=== PATIENT | male | born 1960 | race Caucasian/White ===

== ENCOUNTER 2019-03-11 14:34 | Outpatient (CLI) | payer OTHER | END 2019-03-11 23:59 | disposition home or self-care (01) | LOC: CARD 14:34 | PROVIDERS: ATTEND Internal Medicine Cardiovascular Disease | DX: I73.9 Peripheral vascular disease, unspecified (principal) ==

== ENCOUNTER 2024-05-31 06:28 | Inpatient (IN) | payer MEDICARE ==
[~2024-05-31] VITALS: Ht 170.2 cm; Wt 78.5 kg
[2024-05-31 02:00] VITALS: BP 132/80; TEMP 97.5; O2SAT 92
[2024-05-31] MEDS ORDERED: VANCOMYCIN 1 GM VIAL ONE (07:13)
[2024-05-31] MEDS ORDERED: dexaMETHasone SOD PHOSPHATE 2 ML ONE (07:13)
[2024-05-31] MEDS ORDERED: LIDOCAINE 2%-EPI 1:100,000 30 ML VIAL ONE (07:13)
[2024-05-31] MEDS ORDERED: FENTANYL PF 250MCG/5ML AMPUL ONE (07:18)
[2024-05-31] MEDS ORDERED: ROCURONIUM BROMIDE 50 MG/5 ML ONE (07:19)
[2024-05-31 11:00] VITALS: BP 132/80; TEMP 97.5; O2SAT 92
[2024-05-31 11:30] VITALS: BP 120/80; TEMP 97.8; O2SAT 92
[2024-05-31] MEDS ORDERED: ONDANSETRON HCL/PF 4 MG/2 ML VIAL IVP PRN (11:30)
[2024-05-31] MEDS ORDERED: AMOX1TAB16 PO (11:44)
[2024-05-31] MEDS ORDERED: TAMS-12 PO (11:44)
[2024-05-31] MEDS ORDERED: TRAM50TA2 PO (11:44)
[2024-05-31] MEDS ORDERED: LEVO112T7 PO (11:44)
[2024-05-31] MEDS ORDERED: BUPR150T10 PO (11:44)
[2024-05-31] MEDS ORDERED: ATOR20TA PO (11:44)
[2024-05-31] MEDS: HYDROMORPHONE 1 MG/1 ML DISP.SYRIN IV PRN (13:19)
[2024-05-31] MEDS: IV NS 0.9% 1,000 ML IV PRN (14:07)
[2024-05-31 16:00] VITALS: BP 132/80; TEMP 97.5; O2SAT 92
[2024-05-31 20:00] VITALS: BP 127/75; TEMP 97.5; O2SAT 95
[2024-05-31] MEDS: VANCOMYCIN 1 GM in IV D5W 250ml IV SCH (20:58)
[2024-05-31] MEDS: ACETAMINOPHEN 325 MG TABLET PO PRN (21:06)
[2024-06-01 08:00] VITALS: BP 126/76; TEMP 98.8; O2SAT 93
== END 2024-06-01 10:56 | disposition home or self-care (01) | DRG 142 ==
LOC: DS 06:28 → MED 11:07
PROVIDERS: ADMIT Internal Medicine; ATTEND Internal Medicine
PROC: 0NST04Z Reposition Right Mandible with Internal Fixation Device, Open Approach (ICD-10-PCS; principal; 2024-05-31)
PROC: 0N5T0ZZ Destruction of Right Mandible, Open Approach (ICD-10-PCS; principal; 2024-05-31)
PROC: 0N5R0ZZ Destruction of Maxilla, Open Approach (ICD-10-PCS; principal; 2024-05-31)
PROC: 0NSV04Z Reposition Left Mandible with Internal Fixation Device, Open Approach (ICD-10-PCS; principal; 2024-05-31)
PROC: 0N5V0ZZ Destruction of Left Mandible, Open Approach (ICD-10-PCS; principal; 2024-05-31)
PROC: 0NUT07Z Supplement Right Mandible with Autologous Tissue Substitute, Open Approach (ICD-10-PCS; principal; 2024-05-31)
PROC: 0NSR04Z Reposition Maxilla with Internal Fixation Device, Open Approach (ICD-10-PCS; principal; 2024-05-31)
PROC: 0NUR07Z Supplement Maxilla with Autologous Tissue Substitute, Open Approach (ICD-10-PCS; principal; 2024-05-31)
DX: S02.40CA Maxillary fracture, right side, initial encounter for closed fracture (principal); S02.609A Fracture of mandible, unspecified, initial encounter for closed fracture; S02.40DA Maxillary fracture, left side, initial encounter for closed fracture; X58.XXXA Exposure to other specified factors, initial encounter; Y93.9 Activity, unspecified; Y92.89 Other specified places as the place of occurrence of the external cause; D16.4 Benign neoplasm of bones of skull and face; D16.5 Benign neoplasm of lower jaw bone; J32.0 Chronic maxillary sinusitis; M85.68 Other cyst of bone, other site; M27.2 Inflammatory conditions of jaws; E78.5 Hyperlipidemia, unspecified; L40.9 Psoriasis, unspecified; N40.0 Benign prostatic hyperplasia without lower urinary tract symptoms
CPT/HCPCS: 94799-TC; A4223; G0378; J0461; J0690; J1100; J1171; J2704; J3010; J3370; J3490; J7030; J7060

== ENCOUNTER 2024-09-27 06:02 | Day surgery (SDC) | payer OTHER ==
[~2024-09-27 06:02] MED LIST: AMOX1TAB16 PO; ATOR20TA PO; BUPR150T10 PO; LEVO112T7 PO; TAMS-12 PO; TRAM50TA2 PO
[2024-09-27] MEDS ORDERED: ROCURONIUM BROMIDE 50 MG/5 ML ONE (06:36)
[2024-09-27] MEDS ORDERED: FENTANYL PF 250MCG/5ML AMPUL ONE (06:36)
[2024-09-27] MEDS ORDERED: LIDOCAINE 2%-EPI 1:100,000 30 ML VIAL ONE (06:59)
[2024-09-27] MEDS ORDERED: dexaMETHasone SOD PHOSPHATE 1 ML ONE (06:59)
[2024-09-27] MEDS ORDERED: OXYMETAZOLINE HCL NASAL SPRAY 30 ML BOTTLE NS ONE (07:00)
[2024-09-27] MEDS ORDERED: VANCOMYCIN 1 GM VIAL ONE (07:00)
[2024-09-27] MEDS ORDERED: ALBUTEROL FS 2.5 MG/3 ML VIAL.NEB ONE (09:32)
[2024-09-27] MEDS ORDERED: IPRATROPIUM NEB FS 0.5 MG/2.5 ML AMPUL.NEB ONE (09:32)
[2024-09-27 09:40] VITALS: O2SAT 92
[2024-09-27] MEDS: ALBUTEROL FS 2.5 MG/3 ML VIAL.NEB NEB PRN (09:40)
[2024-09-27] MEDS: IPRATROPIUM NEB FS 0.5 MG/2.5 ML AMPUL.NEB NEB ONE (09:40)
[2024-09-27 09:51] VITALS: O2SAT 98
[2024-09-27] MEDS ORDERED: ACETAMINOPHEN 325 MG TABLET ONE (10:55)
[2024-09-27] MEDS: ACETAMINOPHEN 325 MG TABLET PO PRN (11:09)
[2024-09-27 11:20] VITALS: BP 126/76; TEMP 98.5; O2SAT 95
[2024-09-27] MEDS ORDERED: ONDANSETRON HCL/PF 4 MG/2 ML VIAL IV PRN (11:30)
[2024-09-27] MEDS ORDERED: IV NS 0.9% 1,000 ML IV PRN (11:30)
[2024-09-27] MEDS ORDERED: ACETAMINOPHEN 325 MG TABLET PO PRN (12:00)
[2024-09-27] MEDS ORDERED: HYDROMORPHONE 1 MG/1 ML DISP.SYRIN IV PRN (12:00)
[2024-09-27 12:07] VITALS: BP 120/76; TEMP 98.4; O2SAT 95
== END 2024-09-27 18:00 | disposition home or self-care (01) ==
LOC: DS 06:02 → UNDOADMIN 11:09 → MED 11:09 → UNDODISIN 16:05 → DS 18:00
PROVIDERS: ATTEND Dentist Oral and Maxillofacial Surgery
PROC: 0N5R0ZZ Destruction of Maxilla, Open Approach (ICD-10-PCS; principal; 2024-09-27)
PROC: 0NPW04Z Removal of Internal Fixation Device from Facial Bone, Open Approach (ICD-10-PCS; 2024-09-27)
PROC: 0N5V0ZZ Destruction of Left Mandible, Open Approach (ICD-10-PCS; 2024-09-27)
PROC: 0N5T0ZZ Destruction of Right Mandible, Open Approach (ICD-10-PCS; 2024-09-27)
PROC: 0NST04Z Reposition Right Mandible with Internal Fixation Device, Open Approach (ICD-10-PCS; 2024-09-27)
PROC: 0NPW07Z Removal of Autologous Tissue Substitute from Facial Bone, Open Approach (ICD-10-PCS; 2024-09-27)
DX: T86.831 Bone graft failure (principal); S02.69XK Fracture of mandible of other specified site, subsequent encounter for fracture with nonunion; T84.69XA Infection and inflammatory reaction due to internal fixation device of other site, initial encounter; K13.79 Other lesions of oral mucosa; M89.38 Hypertrophy of bone, other site; D16.4 Benign neoplasm of bones of skull and face; I34.0 Nonrheumatic mitral (valve) insufficiency; N40.0 Benign prostatic hyperplasia without lower urinary tract symptoms; L40.9 Psoriasis, unspecified; J44.89 Other specified chronic obstructive pulmonary disease; F17.210 Nicotine dependence, cigarettes, uncomplicated; Y83.2 Surgical operation with anastomosis, bypass or graft as the cause of abnormal reaction of the patient, or of later complication, without mention of misadventure at the time of the procedure; Y92.009 Unspecified place in unspecified non-institutional (private) residence as the place of occurrence of the external cause
CPT/HCPCS: 20680; 21046; 21048; 21461; 88305; 88311; 94640; C1713; J0461; J0690; J1100; J2704; J3010; J3370; J3490; G0378